=== PATIENT | male | born 1950 | race Caucasian/White ===

== ENCOUNTER 2017-07-03 12:09 | Day surgery (SDC) | payer OTHER ==
[2017-07-03] MEDS ORDERED: PROPOFOL 20 ML (16:27)
[2017-07-03] MEDS ORDERED: LIDOCAINE 2% (SDV) 5 ML INJ (16:27)
[2017-07-03] MEDS ORDERED: MIDAZOLAM 1 MG/ML 2 ML INJ (16:28)
[2017-07-03] MEDS ORDERED: hydrALAzine 20 MG INJ (16:31)
== END 2017-07-03 17:19 | disposition home or self-care (01) ==
LOC: GIL 12:09
DX: K22.2 Esophageal obstruction (principal); K76.6 Portal hypertension; K31.89 Other diseases of stomach and duodenum; E11.9 Type 2 diabetes mellitus without complications; I10 Essential (primary) hypertension
CPT/HCPCS: 43239; 82962